=== PATIENT | female | born 1950 | race Caucasian/White ===

== ENCOUNTER 2020-10-24 17:44 | Outpatient (REF) | payer MEDICARE, SELFPAY | END 2020-10-24 17:45 | disposition home or self-care (01) | LOC: HO.LAB 17:44 | PROVIDERS: Visit Provider Internal Medicine | DX: Z20.828 Contact with and (suspected) exposure to other viral communicable diseases (principal) | CPT/HCPCS: C9803; U0003 ==

== ENCOUNTER 2023-08-07 08:54 | Outpatient (AMB) | payer MEDICARE, SELFPAY ==
--- NOTE | 2023-08-07 09:00 | MHC.OFFVIS ---
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 States her right is worse. Pain started about 2 years ago and has worsen over time. Pain increases when laying and sitting, better when she is mostly active. No injury she can recall. Denies swelling, numbness or tingling in her toes. States using lidocaine spray helps temporary Hx of LBP. States she has tried right ankle injection in February or March of 2023 however she did not have any relief. Allergies oxycodone Allergy (Intermediate, Verified 08/07/23 09:07) hives sulfacetamide [From Sulfacet-R] Allergy (Intermediate, Verified 08/07/23 09:07) hives sulfur [From Sulfacet-R] Allergy (Intermediate, Verified 08/07/23 09:07) hives codine Allergy (Mild, Uncoded 08/07/23 09:07) hives Medication List - Last Reconciled 08/07/23 by Staci Mathis MD cyclosporine 0.09% (Cequa) 1 drp ophthalmic (eye) Q12H omeprazole 20 mg PO DAILY topiramate 100 mg PO DAILY HPI HPI Comments History of Present Illness Details Patient was referred by Fito PYLE, [facility], who has been following patient for bilateral ankle pain. History of lumbar stenosis. Referred to physiatry to evaluate relationship between stenosis and ankle pain. Back issues since 1977, from running injury. Used to run on beach and side walks. Times that she had to use crutches. Had bad sciatica . Did skiing in [place]. Was told to have lumbar issues L4-5. Had fall during pandemic, after which she could not put weight on her right leg, given pain relievers and had PT. Was told to have issues from L1-2-3. Really didn't have back issues since. Nowadays, does not have back pain or leg pain. No numbness. The more she walks, the better the ankle pain is. Despite uneven surfaces, walking is fine. Denies claudication symptoms. No back pain with prolonged sitting or laying down. Feet/ankle is worse when she sits. Pain on anterior feet/ankle, could wake her up at night. Feels burning. Going for 2 years, worsening. No incitiing injuries. Has not noticed foot drop. Cross legs a lot. Does not wear high boots. No DM. Family history of neuropathy - mom, brother, etiology unknown? [facility] Medical History (Updated 08/07/23 @ 09:47 by Staci Mathis MD) Lumbar stenosis Ankle pain Social History (Updated 08/07/23 @ 09:07 by Noemy Wilkins [facility]) Current occupational status: retired Current occupation: left hand Review of Systems Const All systems reviewed & are unremarkable except as noted in HPI and below Physical Exam Vital Signs: BMI result Body Mass Index 22.0 Constitutional: Patient appears to be in no acute distress, well nourished and well developed. Patient was appropriately conversant and oriented. Good historian. MSK: No specific abnormalities found on inspection of the spine and all extremities. No pain with palpation over the lumbar area. Lumbar ROM was full. Bilateral hip, knee and ankle ROM WNL. No ligamentous laxity or crepitance. No increased effusion. Straight-leg raising test positive on right causing right foot pain. FABERE test negative. Gillet test is negative. Eloina test is negative. Piriformis test is negative. Scour test is negative. Strength is 5/5 in all muscle groups tested. No increased tone noted. Neurological: Neurologic examination of the upper and lower extremities was nonfocal with intact sensation, muscle stretch reflexes and without focal motor deficits . Mclain?s negative bilaterally. Babinski was down going bilaterally. Clonus was negative. Gait is non-antalgic without loss of balance. No footdrop. Results Reviewed Results Reviewed: We will obtain lumbar MRI results from [facility] I reviewed records from the following: Podiatry at [facility] Assessment & Plan Assessment & Plan (1) Ankle pain: Code(s): M25.579 - Pain in unspecified ankle and joints of unspecified foot Qualifiers: Chronicity: chronic Laterality: bilateral Qualified Code(s): M25.571 - Pain in right ankle and joints of right foot; M25.572 - Pain in left ankle and joints of left foot; G89.29 - Other chronic pain (2) Lumbar stenosis: Code(s): M48.061 - Spinal stenosis, lumbar region without neurogenic claudication Qualifiers: Neurogenic claudication status: without neurogenic claudication Qualified Code(s): M48.061 - Spinal stenosis, lumbar region without neurogenic claudication Plan Her main issue have been ankle pain. She was referred to us to evaluate the possibility that it is related to her history of lumbar stenosis. On history, she denies claudication symptoms. In fact, she says ankle pain improves with walking, which would be opposite from lumbar stenosis/claudication. Only possible finding that relates to lumbar on exam is a positive right SLR. Differential diagnosis could be peroneal neuropathy. She does cross her legs frequently. Her pain is more anterior rather than on heels. Fortunately there is no foot drop yet. Will schedule her for EMG to rule out peroneal neuropathy vs radiculopathy. Will obtain lumbar MRIs done at [facility]. Assessment and plan discussed with patient, and patient was agreeable. All questions were answered thoroughly. Staci Mathis MD, MAGALYS Board Certified, [place] Board of Physical Medicine and Rehabilitation (ABPMR) Board Certified, [place] Board of Electrodiagnostic Medicine (ABEM) Orders: Orders NE nerve conduction velocity Today M25.579 - Pain in unspecified ankle and joints of unspecified foot NE electromyogram (EMG) Today M25.579 - Pain in unspecified ankle and joints of unspecified foot Coding Level of Care Code New Pt Level 4 (33065) Diagnoses Chronic pain of both ankles M25.571; M25.572; G89.29 Chronicity: chronic Laterality: bilateral Spinal stenosis of lumbar region without neurogenic claudication M48.061 Neurogenic claudication status: without neurogenic claudication
[2023-08-07 09:06] VITALS: BMI 22.0
== END 2023-08-07 10:17 | disposition home or self-care (01) ==
PROVIDERS: Visit Provider Physical Medicine & Rehabilitation
DX: M25.571 Pain in right ankle and joints of right foot (principal); M25.572 Pain in left ankle and joints of left foot; G89.29 Other chronic pain; M48.061 Spinal stenosis, lumbar region without neurogenic claudication
CPT/HCPCS: 99204

== ENCOUNTER → 2023-08-07 08:54 | Outpatient (BNVA) | payer MEDICARE, SELFPAY | PROVIDERS: Visit Provider Physical Medicine & Rehabilitation ==

== ENCOUNTER 2023-10-23 13:29 | Outpatient (REF) | payer MEDICARE, SELFPAY ==
--- NOTE | 2023-10-23 13:35 | EMG_ITS ---
Chief complaint: Bilateral feet pain Reason for referral: Evaluate for peroneal neuropathy Procedure done: Bilateral lower extremity NCS/EMG Precautions and/or limitations: None The limb temperature was monitored continuously and remained between 32-36 degrees C during the performance of the NCS. Nerve Conduction Studies Anti Sensory Summary Table ?Stim Site NR Onset (ms) Norm Onset (ms) Peak (ms) Norm Peak (ms) O-P Amp (?V) Norm O-P Amp Site1 Site2 Delta-0 (ms) Dist (cm) Daniel (m/s) Norm Daniel (m/s) Left Sural Anti Sensory (Lat Mall) Calf ? 1.6 4.0 <4.0 12.5 >5.0 Calf Lat Mall 1.6 14.0 88 Right Sural Anti Sensory (Lat Mall) Calf ? 3.6 4.0 <4.0 6.6 >5.0 Calf Lat Mall 3.6 14.0 39 Motor Summary Table ?Stim Site NR Onset (ms) Norm Onset (ms) O-P Amp (mV) Norm O-P Amp iAmp (mV) Amp (1st) (%) Site1 Site2 Delta-0 (ms) Dist (cm) Daniel (m/s) Norm Daniel (m/s) Left Peroneal Motor (Ext Dig Brev) Ankle ? 5.5 <4.0 3.5 >2.5 5.0 100.0 Ankle Ext Dig Brev 5.5 0.0 B Fib ? 13.7 2.9 4.0 82.9 B Fib Ankle 8.2 35.0 43 >40 Poplt ? 14.5 2.9 4.0 82.9 Poplt B Fib 0.8 5.0 62 >40 Right Peroneal Motor (Ext Dig Brev) Ankle ? 5.2 <4.0 4.3 >2.5 5.8 100.0 Ankle Ext Dig Brev 5.2 0.0 B Fib ? 12.3 3.3 4.0 76.7 B Fib Ankle 7.1 32.0 45 >40 Poplt ? 13.6 3.6 4.4 83.7 Poplt B Fib 1.3 5.0 38 >40 Left Tibial Motor (Abd Umaña Brev) Ankle ? 4.6 <5 12.1 >2.5 16.9 100.0 Ankle Abd Umaña Brev 4.6 0.0 Knee ? 12.8 7.3 10.5 60.3 Knee Ankle 8.2 39.0 48 >40 Right Tibial Motor (Abd Umaña Brev) Ankle ? 4.6 <5 7.6 >2.5 10.6 100.0 Ankle Abd Umaña Brev 4.6 0.0 Knee ? 13.0 5.5 8.1 72.4 Knee Ankle 8.4 42.0 50 >40 EMG ?Side Muscle Nerve Root Ins Act Fibs Psw Amp Dur Poly Recrt Int Pat Comment Right AbdHallucis MedPlantar S1-2 Nml Nml Nml Nml Nml 0 Nml Complete Right AntTibialis Dp Br Peron L4-5 Nml Nml Nml Nml Nml 0 Nml Complete Right MedGastroc Tibial S1-2 Nml Nml Nml Nml Nml 0 Nml Complete Right VastusMed Femoral L2-4 Nml Nml Nml Nml Nml 0 Nml Complete Left AbdHallucis MedPlantar S1-2 Nml Nml Nml Nml Nml 0 Nml Complete Left AntTibialis Dp Br Peron L4-5 Nml Nml Nml Nml Nml 0 Nml Complete Left MedGastroc Tibial S1-2 Nml Nml Nml Nml Nml 0 Nml Complete Left VastusMed Femoral L2-4 Nml Nml Nml Nml Nml 0 Nml Complete Left Peroneus Long Sup Br Peron L5-S1 Nml Nml Nml Nml Nml 0 Nml Complete Right Peroneus Long Sup Br Peron L5-S1 Nml Nml Nml Nml Nml 0 Nml Complete FINDINGS: Right peroneal nerve showed prolonged distal latency, normal amplitude and slow conduction velocity across the fibular neck. Left peroneal nerve showed prolonged distal latency, normal amplitude and normal conduction velocity. All other nerves tested were within normal. Concentric needle EMG was performed in selected muscles of the bilateral lower extremity. Study did not reveal signs of electric abnormalities as shown in the table below. IMPRESSION: 1. This is an abnormal study. 2. 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 More localizable on the right, across fibular neck. 3. There is no electrodiagnostic evidence for tibial neuropathy. lumbosacral plexopathy, lumbar radiculopathy, or peripheral neuropathy. CLINICAL COMMENT: Avoid crossing legs. If continues in 6 months, patient to call our office and we may repeat EMG. Thank you for your kind referral. Staci Mathis MD, MAGALYS Board Certified, [place] Board [employer] Physical Medicine and Rehabilitation (ABPMR) Board Certified, [place] Board [employer] Electrodiagnostic Medicine (ABEM) CODIN [id number] x 2 MTDD
== END 2023-10-23 13:30 | disposition home or self-care (01) ==
LOC: HO.NEURO 13:29
PROVIDERS: PCP Family Medicine; Visit Provider Physical Medicine & Rehabilitation
DX: G57.33 Lesion of lateral popliteal nerve, bilateral lower limbs (principal); M25.571 Pain in right ankle and joints of right foot; M25.572 Pain in left ankle and joints of left foot
CPT/HCPCS: 95886; 95909

== ENCOUNTER → 2023-10-23 13:35 | Outpatient (BNV) | payer MEDICARE, BC, SELFPAY | PROVIDERS: PCP Family Medicine; Visit Provider Physical Medicine & Rehabilitation | DX: S84.11XA Injury of peroneal nerve at lower leg level, right leg, initial encounter (principal); S84.12XA Injury of peroneal nerve at lower leg level, left leg, initial encounter | CPT/HCPCS: 95886; 95909 ==

== ENCOUNTER 2024-07-08 10:04 | Outpatient (AMB) | payer MEDICARE, BC, SELFPAY ==
--- NOTE | 2024-07-08 10:07 | A.OFFVIS_ITS ---
Vital Signs 07/08/24 10:08 Height 5 ft 5 in Weight 137 lb BMI 22.8 Intake Visit Reasons: Newprob-Right leg pain Intake Note: Dodie is a 73 year old female who presents today for a new problem visit with complaints of right leg pain. Patient reports since her EMG on 10/23/23 her symptoms have not improved. She is doing PT but states this is not helping the bridge of her foot. When she is driving and accelerates the gas pedal she says it sends a shooting pain up her leg. She has a L5 cortisone injection is schedule or end of this month and says she does not think it will help the pain in her foots. Her main concern is the burning sensation on the bridge of her foot. Denies numbness, tingling, swelling, and recent injuries. Patient is taking medication for heart but unaware. Allergies oxycodone Allergy (Intermediate, Verified 07/08/24 10:08) hives sulfacetamide [From Sulfacet-R] Allergy (Intermediate, Verified 07/08/24 10:08) hives sulfur [From Sulfacet-R] Allergy (Intermediate, Verified 07/08/24 10:08) hives codine Allergy (Mild, Uncoded 07/08/24 10:08) hives Medication List - Last Reconciled 07/08/24 by Staci Mathis MD apixaban (Eliquis) 5 mg PO BID azelastine 2 sprays intranasal BID cyclosporine 0.09% (Cequa) 1 drp ophthalmic (eye) Q12H metoprolol succinate ER 100 mg PO DAILY omeprazole 20 mg PO DAILY rizatriptan take 1 tab at onset of headache; if no relief may repeat 1 tab after at least 2 hrs; max = 3 tabs/24 hr PO topiramate XR 100 mg PO DAILY triamcinolone acetonide (Nasacort Allergy) 2 sprays intranasal DAILY HPI Comments Details: Patient was referred by Fito PYLE, [facility], who has been following patient for bilateral ankle pain. History of lumbar stenosis. Referred to physiatry to evaluate relationship between stenosis and ankle pain. Back issues since 1977, from running injury. Used to run on beach and side walks. Times that she had to use crutches. Had bad sciatica . Did skiing in [place]. Was told to have lumbar issues L4-5. Had fall during pandemic, after which she could not put weight on her right leg, given pain relievers and had PT. Was told to have issues from L1-2-3. Really didn't have back issues since. Nowadays, does not have back pain or leg pain. No numbness. The more she walks, the better the ankle pain is. Despite uneven surfaces, walking is fine. Denies claudication symptoms. No back pain with prolonged sitting or laying down. Feet/ankle is worse when she sits. Pain on anterior feet/ankle, could wake her up at night. Feels burning. Going for 2 years, worsening. No incitiing injuries. Has not noticed foot drop. Cross legs a lot. Does not wear high boots. No DM. Family history of neuropathy - mom, brother, etiology unknown? EMG done 10/23/23 showed bilateral peroneal neuropathy at the fibular neck. Past MRI 06/24/23 did not report any spinal stenosis. She's been going to [facility] PT since February, had narrowed it down to right leg/ sciatica . Now scheduled to do right L5 SNRB 07/[address] Banks. Possibly do in the future to do peroneal injection. They did repeat lumbar MRI, done at [facility]. She continues to have constant right ankle pain. No left side pain. Having right lateral back down to right knee area and kruger pain. Recent afib diagnosis, on Eliquis. Non diabetic. 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 Patient was appropriately conversant and oriented. Good historian. MSK: No specific abnormalities found on inspection of the spine and all extremities. No pain with palpation over the lumbar area. Lumbar ROM was full. Strength is 5/5 in all muscle groups tested. No increased tone noted. Neurological: Neurologic examination of the upper and lower extremities was nonfocal with intact sensation, muscle stretch reflexes and without focal motor deficits . Mclain?s negative bilaterally. Babinski was down going bilaterally. Clonus was negative. Gait is non-antalgic without loss of balance. No footdrop. Results Reviewed Results Reviewed: EMG 10/23/23 IMPRESSION: 1. This is an abnormal study. 2. 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 More localizable on the right, across fibular neck. 3. There is no electrodiagnostic evidence for tibial neuropathy. lumbosacral plexopathy, lumbar radiculopathy, or peripheral neuropathy. Assessment & Plan Assessment & Plan (1) Peroneal neuropathy: Code(s): G57.30 - Lesion of lateral popliteal nerve, unspecified lower limb Category: Medical Qualifiers: Laterality: right Qualified Code(s): G57.31 - Lesion of lateral popliteal nerve, right lower limb (2) Lumbar radiculitis: Code(s): M54.16 - Radiculopathy, lumbar region Category: Medical Plan She will continue with PSSP for the right L5 injection. She was curious if we can repeat EMG to see how the peroneal nerve is doing and to rule out L5 radiculopathy again. We will schedule. Assessment and plan discussed with patient, and patient was agreeable. All questions were answered thoroughly. Staci Mathis MD, MAGALYS Board Certified, [place] Board of Physical Medicine and Rehabilitation (ABPMR) Board Certified, [place] Board of Electrodiagnostic Medicine (ABEM) Orders: Orders NE nerve conduction velocity Today G57.30 - Lesion of lateral popliteal nerve, unspecified lower limb NE electromyogram (EMG) Today G57.30 - Lesion of lateral popliteal nerve, unspecified lower limb Coding Level of Care Code Est Pt Level 3 (70124) Diagnoses Neuropathy of right peroneal nerve G57.31 Laterality: right Lumbar radiculitis M54.16
[2024-07-08 10:08] VITALS: BMI 22.8
== END 2024-07-08 10:41 | disposition home or self-care (01) ==
PROVIDERS: PCP Family Medicine; Visit Provider Physical Medicine & Rehabilitation
DX: G57.31 Lesion of lateral popliteal nerve, right lower limb (principal)
CPT/HCPCS: 99213

== ENCOUNTER → 2024-07-08 10:04 | Outpatient (BNVA) | payer MEDICARE, SELFPAY | PROVIDERS: PCP Family Medicine; Visit Provider Physical Medicine & Rehabilitation | DX: G57.31 Lesion of lateral popliteal nerve, right lower limb (principal) | CPT/HCPCS: 99212 ==

== ENCOUNTER 2024-08-18 13:05 | Outpatient (REF) | payer MEDICARE, BC, SELFPAY ==
--- NOTE | 2024-08-18 13:09 | EMG_ITS ---
ADDENDUM: Correction has been made to this report under Impression. Chief complaint: At least 3 years of right ankle pain. Shooting pain on right leg when she steps down on the gas while driving. Denies lower back pain per se. She denies symptoms on left leg. EMG done by me 10/23/2023 showed signs of bilateral peroneal neuropathy at the fibular neck. Reason for referral: Repeat NCS/EMG, rule out L5 radiculopathy, confirm peroneal neuropathy Procedure done: Bilateral lower extremity NCS/EMG Precautions and/or limitations: Eliquis The limb temperature was monitored continuously and remained between 32-36 degrees C during the performance of the NCS. Nerve Conduction Studies Anti Sensory Summary Table ?Stim Site NR Onset (ms) Norm Onset (ms) Peak (ms) Norm Peak (ms) O-P Amp (?V) Norm O-P Amp Site1 Site2 Delta-0 (ms) Dist (cm) Daniel (m/s) Norm Daniel (m/s) Left Sup Peron Anti Sensory (Ankle) Lateral Leg NR <4.4 >5.0 Lateral Leg Ankle 14.0 Right Sup Peron Anti Sensory (Ankle) Lateral Leg NR <4.4 >5.0 Lateral Leg Ankle 14.0 Left Sural Anti Sensory (Lat Mall) Calf ? 2.7 3.9 <4.0 20.2 >5.0 Calf Lat Mall 2.7 14.0 52 Right Sural Anti Sensory (Lat Mall) Calf ? 3.1 3.8 <4.0 8.8 >5.0 Calf Lat Mall 3.1 14.0 45 Motor Summary Table ?Stim Site NR Onset (ms) Norm Onset (ms) O-P Amp (mV) Norm O-P Amp iAmp (mV) Amp (1st) (%) Site1 Site2 Delta-0 (ms) Dist (cm) Daniel (m/s) Norm Daniel (m/s) Left Peroneal Motor (Ext Dig Brev) Ankle ? 4.9 <4.0 3.0 >2.5 3.6 100.0 Ankle Ext Dig Brev 4.9 0.0 B Fib ? 11.6 2.8 3.4 93.3 B Fib Ankle 6.7 32.0 48 >40 Poplt ? 13.1 2.8 3.3 93.3 Poplt B Fib 1.5 5.0 33 >40 Right Peroneal Motor (Ext Dig Brev) Ankle ? 4.8 <4.0 5.4 >2.5 6.9 100.0 Ankle Ext Dig Brev 4.8 0.0 B Fib ? 12.1 4.5 5.4 83.3 B Fib Ankle 7.3 31.5 43 >40 Poplt ? 13.1 4.5 5.3 83.3 Poplt B Fib 1.0 6.0 60 >40 Left Peroneal TA Motor (Tib Ant) Fib Head ? 3.7 <4.2 1.5 1.8 100.0 Fib Head Tib Ant 3.7 0.0 Poplit ? 4.5 <5.7 2.9 3.5 193.3 Poplit Fib Head 0.8 5.0 63 >40.5 Left Tibial Motor (Abd Umaña Brev) Ankle ? 4.2 <5 6.0 >2.5 8.0 100.0 Ankle Abd Umaña Brev 4.2 0.0 Knee ? 12.9 3.6 5.8 60.0 Knee Ankle 8.7 41.0 47 >40 Right Tibial Motor (Abd Umaña Brev) Ankle ? 5.0 <5 5.8 >2.5 6.9 100.0 Ankle Abd Umaña Brev 5.0 0.0 Knee ? 13.8 4.3 7.0 74.1 Knee Ankle 8.8 42.0 48 >40 EMG ?Side Muscle Nerve Root Ins Act Fibs Psw Amp Dur Poly Recrt Int Pat Comment Right AbdHallucis MedPlantar S1-2 Nml Nml Nml Nml Nml 0 Nml Complete Right AntTibialis Dp Br Peron L4-5 Incr 1+ 1+ Nml Nml 0 Nml Complete Right PostTibialis Tibial L5, S1 Nml Nml Nml Nml Nml 0 Nml Complete Right MedGastroc Tibial S1-2 Nml Nml Nml Nml Nml 0 Nml Complete Right VastusMed Femoral L2-4 Nml Nml Nml Nml Nml 0 Nml Complete Right BicepsFemS Sciatic L5-S1 Nml Nml Nml Nml Nml 0 Nml Complete Right GluteusMed SupGluteal L4-S1 Nml Nml Nml Nml Nml 0 Nml Complete FINDINGS: Right peroneal nerve showed prolonged distal latency, normal amplitude and normal conduction velocity. Left peroneal nerve, recording at EDB muscle, showed prolonged distal latency, normal amplitude and slow conduction velocity across fibular neck. When recording at TA muscle, amplitude below fibular neck is low. Bilateral superficial peroneal sensory nerves were absent. All other nerves tested were within normal. Concentric needle EMG was performed in selected muscles of the right lower extremity. Study revealed signs of electric abnormalities as shown in the table above. Right TA muscle showed increased insertional activity, PSWs and fibrillations. IMPRESSION: 1. This is an abnormal study. 2. There is electrodiagnostic evidence for bilateral COMMON peroneal neuropathy. 3. There is no electrodiagnostic evidence for tibial neuropathy. lumbosacral plexopathy, lumbar radiculopathy, or peripheral neuropathy. CLINICAL COMMENT: Findings similar to last EMG/NCS. Thank you for your kind referral. Staci Mathis MD, MAGALYS Board Certified, [place] Board [employer] Physical [employer] and Rehabilitation (ABPMR) Board Certified, [place] Board [employer] Electrodiagnostic Medicine (ABEM) CODIN [id number] [facility]
== END 2024-08-18 13:06 | disposition home or self-care (01) ==
LOC: HO.NEURO 13:05
PROVIDERS: PCP Family Medicine; Visit Provider Physical Medicine & Rehabilitation
DX: G57.31 Lesion of lateral popliteal nerve, right lower limb (principal)
CPT/HCPCS: 95886; 95910

== ENCOUNTER → 2024-08-18 13:09 | Outpatient (BNV) | payer MEDICARE, BC, SELFPAY | PROVIDERS: PCP Family Medicine; Visit Provider Physical Medicine & Rehabilitation | DX: G57.33 Lesion of lateral popliteal nerve, bilateral lower limbs (principal) | CPT/HCPCS: 95886; 95911 ==

== ENCOUNTER 2024-09-24 09:57 | Outpatient (AMB) | payer MEDICARE, BC, SELFPAY ==
--- NOTE | 2024-09-24 10:02 | A.OFFVIS_ITS ---
Vital Signs 3 09/24/24 10:04 Height 5 ft 5 in Weight 134 lb BMI 22.3 BP 128/58 L Blood Pressure Location Lt brachial Position Sitting Respiration 16 Pulse 70 Pulse Source Pulse Oximeter Pulse Oximetry (%) 97 Oxygen Delivery Method Room Air Intake Visit Reasons: Lesion of Lateral Popliteal Nerve Right Lower Limb Allergies oxycodone Allergy (Intermediate, Verified 09/24/24 10:05) hives sulfacetamide [From Sulfacet-R] Allergy (Intermediate, Verified 09/24/24 10:05) hives sulfur [From Sulfacet-R] Allergy (Intermediate, Verified 09/24/24 10:05) hives codine Allergy (Mild, Uncoded 09/24/24 10:05) hives Medication List - Last Reconciled 09/24/24 by Clementina Kim LPN apixaban (Eliquis) 5 mg PO BID azelastine 2 sprays intranasal BID cyclosporine 0.09% (Cequa) 1 drp ophthalmic (eye) Q12H metoprolol succinate ER 100 mg PO DAILY omeprazole 20 mg PO DAILY rizatriptan take 1 tab at onset of headache; if no relief may repeat 1 tab after at least 2 hrs; max = 3 tabs/24 hr PO topiramate XR 100 mg PO DAILY triamcinolone acetonide (Nasacort Allergy) 2 sprays intranasal DAILY HPI HPI Lesion of Lateral Popliteal Nerve Right Lower Limb: Details: 74-year-old female who presents to the office today for evaluation of right leg pain, most pronounced in the bridge of the right foot. She has back issues since 1977, from running injury. She used to run on beach and side walks. Times that she had to use crutches. Had bad sciatica . Did skiing in [place]. Was told to have lumbar issues L4-5. Had fall during pandemic, after which she could not put weight on her right leg, given pain relievers and had PT. Was told to have issues from L1-2-3. Really did not have back issues since. While in the office today, she states she has pinched peroneal nerve on both her legs. She reports pain in her right leg. She states the pain is between 5-7/10 10 in intensity on average. The pain initiyally started with the right foot over 2 years ago and had seen 4 podiatrists. She states there were times it was painful to walk. The pain is now constant. She endorses the right foot pain is most bothersome at night and it wakes her up from sleep. She endorses pain in the bridge of the right foot. The pain aggravate with prolonged walking. When she experiences worse pain, the pain is radiating to both her legs. She also experiences episodes of sciatica, where she has pain going all the way from her back down her right leg. She has tried gabapentin in the past with benefit. Patient states that she had an MRI done at [facility]. She hasn't received back injections in the recent past as she was diagnosed with atrial fibrillation and had off Eliquis for a while. HPI Comments Details: 74-year-old female who presents to the office today for evaluation of lesion of lateral popilteal nerve, right lower limb. She has back issues since 1977, from running injury. She used to run on beach and side walks. Times that she had to use crutches. Had bad sciatica . Did skiing in [place]. Was told to have lumbar issues L4-5. Had fall during pandemic, after which she could not put weight on her right leg, given pain relievers and had PT. Was told to have issues from L1-2-3. Really did not have back issues since. While in the office today, she states she has pinched peroneal nerve on both her legs. She reports pain in her legs and foot. It started with the right foot over 2 years ago and had to go to four podiatrists. She states there were times it was painful to walk. The pain is constant. With pain, she has difficulty sleeping. She endorses pain in the bridge of the foot. The pain aggravate with prolonged walking. When she experiences worse pain, the pain is radiating to both her legs. She has tried gabapentin in the past with benefit. Patient states that she had an MRI done at [facility]. She never received back injections in the past as she was diagnosed with atrial fibrillation and had off Eliquis for a while. [facility] Medical History (Updated 07/08/24 @ 10:39 by Staci Mathis MD) Peroneal neuropathy Lumbar stenosis Ankle pain Social History (Updated 08/07/23 @ 09:07 by Noemy Wilkins [facility]) Current occupational status: retired Current occupation: left hand Review of Systems Const All systems reviewed & are unremarkable except as noted in HPI and below Physical Exam Vital Signs: Last Vital Signs Pulse 70 09/24/24 10:04 Resp 16 09/24/24 10:04 BP 128/58 L 09/24/24 10:04 Pulse Ox 97 09/24/24 10:04 Oxygen Delivery Method Room Air 09/24/24 10:04 BMI result Body Mass Index 22.3 General: Appears afebrile. Alert and oriented. Mood and affect appropriate. Follows and participates in conversation appropriately. Respiratory effort is unlabored. Able to transition from sit to stand unassisted. Ambulates with bilaterally normal heel strike and toe off. Right Leg: There is tenderness to palpation overlying the palpation of the posterolateral aspect on the right knee, but similar tenderness is not present on the left side. Results Reviewed Results Reviewed: EMG/NCS FINDINGS: Right peroneal nerve showed prolonged distal latency, normal amplitude and normal conduction velocity. Left peroneal nerve, recording at EDB muscle, showed prolonged distal latency, normal amplitude and slow conduction velocity across fibular neck. When recording at TA muscle, amplitude below fibular neck is low. Bilateral superficial peroneal sensory nerves were absent. All other nerves tested were within normal. Concentric needle EMG was performed in selected muscles of the right lower extremity. Study revealed signs of electric abnormalities as shown in the table above. Right TA muscle showed increased insertional activity, PSWs and fibrillations. IMPRESSION: 1. This is an abnormal study. 2. There is electrodiagnostic evidence for bilateral COMMON peroneal neuropathy. 3. There is no electrodiagnostic evidence for tibial neuropathy. lumbosacral plexopathy, lumbar radiculopathy, or peripheral neuropathy. Assessment & Plan Assessment & Plan (1) Lumbar radiculitis: Code(s): M54.16 - Radiculopathy, lumbar region Category: Medical (2) Peroneal neuropathy: Code(s): G57.30 - Lesion of lateral popliteal nerve, unspecified lower limb Category: Medical Qualifiers: Laterality: right Qualified Code(s): G57.31 - Lesion of lateral popliteal nerve, right lower limb (3) Ankle pain: Code(s): M25.579 - Pain in unspecified ankle and joints of unspecified foot Category: Medical Qualifiers: Chronicity: chronic Laterality: bilateral Qualified Code(s): M25.571 - Pain in right ankle and joints of right foot; M25.572 - Pain in left ankle and joints of left foot; G89.29 - Other chronic pain Plan Discussed hydrodissection and temporary nerve stimulation as well as permanent nerve stimulation as possible treatments for her RLE pain. Her right LE pain is likely a combination of lumbar radiculitis, peripheral nerve entrapment, and potentially mechanical foot arch instability. It is difficult to say how much each of these components is contributing to her symptoms. As the gabapentin was effective in the past, we will try her on gabapentin 300 mg daily for 1 month to see how she does. She will titrate the dose up to 600 if this dose is not effective. If this is not helpful, we will proceed with a trial of hydrodissection as a next step, eventually proceeding to PNS as needed. She will follow-up in [address] Isbell by Dina Calderon medical care manager, on 09/24/2024. I, Dr. Isbell, have personally reviewed and agree with the information entered by the scribe. Medications: New 2 gabapentin 300 mg PO BEDTIME 60 caps 0RF Coding Level of Care Code New Pt Level 4 (96166) Diagnoses Lumbar radiculitis M54.16 Neuropathy of right peroneal nerve G57.31 Laterality: right Chronic pain of both ankles M25.571; M25.572; G89.29 Chronicity: chronic Laterality: bilateral
[2024-09-24 10:04] VITALS: BP 128/58; PULSE 70; RESP 16; O2SAT 97; BMI 22.3
== END 2024-09-24 10:29 | disposition home or self-care (01) ==
PROVIDERS: PCP Family Medicine; Referring Provider Physical Medicine & Rehabilitation; Visit Provider Internal Medicine
DX: G57.31 Lesion of lateral popliteal nerve, right lower limb (principal); M25.571 Pain in right ankle and joints of right foot; M25.572 Pain in left ankle and joints of left foot; G89.29 Other chronic pain
CPT/HCPCS: 99204

== ENCOUNTER → 2024-09-24 09:57 | Outpatient (BNVA) | payer MEDICARE, BC, SELFPAY | PROVIDERS: PCP Family Medicine; Referring Provider Physical Medicine & Rehabilitation; Visit Provider Internal Medicine | DX: G57.31 Lesion of lateral popliteal nerve, right lower limb (principal); M25.571 Pain in right ankle and joints of right foot; M25.572 Pain in left ankle and joints of left foot; G89.29 Other chronic pain | CPT/HCPCS: 99202 ==

== ENCOUNTER 2024-12-15 10:50 | Outpatient (AMB) | payer MEDICARE, BC, SELFPAY ==
[2024-12-15 10:55] VITALS: BP 126/57; PULSE 71; RESP 16; O2SAT 99
--- NOTE | 2024-12-15 10:55 | A.OFFVIS_ITS ---
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 Required: No Orthodontic Band Maker: Orthodontic Band Maker Present Accompanied by: Andrzej Lo Allergies oxycodone Allergy (Intermediate, Verified 12/15/24 10:57) hives sulfacetamide [From Sulfacet-R] Allergy (Intermediate, Verified 12/15/24 10:57) hives sulfur [From Sulfacet-R] Allergy (Intermediate, Verified 12/15/24 10:57) hives codine Allergy (Mild, Uncoded 12/15/24 10:57) hives Medication List - Last Reconciled 12/15/24 by Clementina Kim LPN apixaban (Eliquis) 5 mg PO BID azelastine 2 sprays intranasal BID cyclosporine 0.09% (Cequa) 1 drp ophthalmic (eye) Q12H gabapentin 600 mg (2 x 300 mg) PO BEDTIME metoprolol succinate ER 100 mg PO DAILY omeprazole 20 mg PO DAILY rizatriptan take 1 tab at onset of headache; if no relief may repeat 1 tab after at least 2 hrs; max = 3 tabs/24 hr PO topiramate XR 100 mg PO DAILY triamcinolone acetonide (Nasacort Allergy) 2 sprays intranasal DAILY HPI HPI Discuss Hydrodissection of Knee Procedure: Details: History of Present Illness The patient is a 74-year-old female presenting with leg pain. She is undergoing treatment with an L5-S1 interlaminar epidural sugar injection, specifically concerned about its efficacy in relieving her leg pain. This intervention is part of her ongoing management for L5-S1 intervertebral disc disorder, which is the underlying cause of her leg discomfort. Her treatment journey includes evaluating the potential benefits of the current procedure and considering future interventions only if necessary. Pain Description - Onset: Persistent for over three years - Quality: Constant, sometimes exacerbating; shooting pain - Location: Right fibular neck, radiating up the kruger - Timing: Increased pain during activities such as pressing the accelerator while driving - Exacerbating Factors: Driving, particularly using the accelerator - Relieving Factors: Gabapentin provides partial relief, adjusted to two tablets at night for better effect - Interference: Significant impact on driving; overall daily activities affected Physical Exam Appears afebrile. Alert and oriented. Mood and affect appropriate. Follows and participates in conversation appropriately. Respiratory effort is unlabored. Able to transition from sit to stand unassisted. Ambulates with bilaterally normal heel strike and toe off. Able to stand and walk on toes and heels. Pain Management - Affect: Not specified - Analgesia: Currently considering L5-S1 interlaminar epidural sugar injection for pain management - Adverse Effects: Not specified - Activities of Daily Living: Influence not discussed - Aberrant Drug Related Behaviors: Not specified [facility] Medical History (Updated 07/08/24 @ 10:39 by Staci Mathis MD) Peroneal neuropathy Lumbar stenosis Ankle pain Social History (Updated 08/07/23 @ 09:07 by Noemy Wlikins C[facility]) Current occupational status: retired Current occupation: left hand Physical Exam Vital Signs: Last Vital Signs Pulse 71 12/15/24 10:55 Resp 16 12/15/24 10:55 BP 126/57 L 12/15/24 10:55 Pulse Ox 99 12/15/24 10:55 Oxygen Delivery Method Room Air 12/15/24 10:55 Assessment & Plan Assessment & Plan (1) Peroneal neuropathy: Code(s): G57.30 - Lesion of lateral popliteal nerve, unspecified lower limb Category: Medical Qualifiers: Laterality: right Qualified Code(s): G57.31 - Lesion of lateral popliteal nerve, right lower limb Plan Plan The plan is to proceed with the L5-S1 interlaminar RIZWANA with Dr. Banks as a potential measure to alleviate the patient's leg pain associated with her L5-S1 intervertebral disc disorder. Evaluating the outcome of this intervention is essential before considering additional treatment options. The patient will transition from gabapentin to pregabalin, with careful monitoring of treatment efficacy to address ongoing neuropathic pain. A right peroneal nerve block, with added local anesthetic, is planned. The scheduling will ensure no driving post-procedure. Further evaluation and consideration of nerve stimulation will be based on post-procedure outcomes. Patient was informed and verbally consented to the use of an ambient scribe for clinic note documentation during this visit. Discussion Notes I discussed with the patient the management of her neuropathic pain, specifically the switch from gabapentin to pregabalin in hope of improved drug efficacy. We explored practical arrangements for a right peroneal nerve block, ensuring insurance coverage through the use of local anesthetic to classify it as a nerve block under Medicare. The importance of not driving post-procedure was emphasized. I educated the patient on the role of nerve stimulation as a potential follow-up if the nerve block yields beneficial results. A brochure was provided to aid understanding of nerve stimulation options. The patient expressed understanding and agreement with the plan and arrangements, anticipating scheduling when personal logistics accommodate these restrictions. Patient Instructions - Continue modified pain management with pregabalin, starting at 75 mg in the morning and 150 mg at night. - Schedule the nerve block procedure when personal arrangements allow for no immediate post-procedure driving. - Follow the provided brochure for further understanding of nerve stimulation options as future potential treatments. - Monitor response to pregabalin and communicate any changes in pain levels or side effects. - Plan follow-up visit as required to evaluate the effects of treatment adjustments and discuss any additional interventions if necessary. Medications: New pregabalin 75 mg orally. 1 tablet QAM; 2 tablets QPM 90 caps 0RF Discontinued gabapentin Discontinued Reason: No Longer Medically Relevant 600 mg (2 x 300 mg) PO BEDTIME 60 caps 3RF Coding Level of Care Code Est Pt Level 3 (44398) Diagnoses Neuropathy of right peroneal nerve G57.31 Laterality: right
--- OUTSIDE RECORDS SUMMARY | 2024-12-15 12:36 | XMS_ITS | Encounter Summary ---
Author Organization [facility] Address [address] [place] [address] Care Team Providers Care Community Affairs Manager Name Role Phone Mason Stearns DO Primary Care Provider Reason for Visit * Reason Onset Date Comments Procedure 11/17/2024 Afib Ablation Encounter Details Date Type Department Care Team ([facility] st Contact Info) Description 11/17/2024 Telephone [facility] [address] [facility] [address] [place] [id number] Ana Colon MD [address] [facility] [address] [place] [address] Procedure (Afib Ablation ) Social History Tobacco Use Types Packs/Day Years Used Date Smoking Tobacco: Never Smokeless Tobacco: Never Alcohol Use Standard Drinks/Week Comments Yes 0 (1 standard drink = 0.6 oz pur e alcohol) Comments Unknown Sex and Gender Information Value Date Recorded Sex Assigned at Not on file Legal Sex Female 4:00 PM EST Gender Identity Not on file Sexual Orientation Not on file documented as of this encounter Progress Notes * Aidee Velazquez - 11/17/2024 8:39 AM EST Spoke with patient and followed up with her about where she was at with her ablation. 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 No further plan of action for now documented in this encounter Plan of Treatment Not on file documented as of this encounter Visit Diagnoses Not on filedocumented in this encounter Care Teams Community Affairs Manager Relationship Specialty Start Date End Date Mason Stearns DO [address] [place], [place] PCP - General 01/14/11 documented as of this encounter
--- OUTSIDE RECORDS SUMMARY | 2024-12-15 12:36 | XMS_ITS | Continuity of Care Document ---
Author Organization [facility] Address [address] [facility], 3r d Floor, [address] [place] [id number]- Care Team Providers Care Physiognomist Name Role Phone Mason Stearns DO Primary Care Physician Encounter [facility] Date(s): 10/20/24 - 11/19/24 [facility] [address] [facility] 3rd Floor, [address] [place] [id number] Encounter Type: Triage Allergies, Adverse Reactions, Alerts Substance Criticality Severity Reaction Reaction Severity Status codeine rash Active sulfa drugs rash Active oxyCODONE itching Active Immunizations Given and Recorded Vaccine Date Status Refusal Reason tetanus/diphtheria/pertussis, acel(Tdap) 03/24/24 Recorded SARS-CoV-2 mRNA (zlurars-[id number]-pgypx) vax 07/29/23 Recorded influenza virus vaccine, inactivated 07/29/23 Jaziel rded influenza virus vaccine, inactivated 08/29/22 Jaziel rded influenza virus vaccine, inactivated 07/29/21 Jaziel rded influenza virus vaccine, inactivated 08/02/20 Jaziel rded influenza virus vaccine, inactivated 07/30/16 Jaziel rded influenza virus vaccine, inactivated 08/08/15 Jaziel rded influenza virus vaccine, inactivated 08/12/14 Jaziel rded influenza virus vaccine, inactivated 08/06/13 Jaziel rded [id number] bivalent booster vax 03/06/23 Recorded [id number] bivalent booster vax 08/29/22 Recorded SARS-CoV-2 (COVID-19) mRNA-1273 vaccine 02/02/21 R ecorded SARS-CoV-2 (COVID-19) mRNA-1273 vaccine 01/05/21 R ecorded zoster vaccine, inactivated 07/31/19 Recorded zoster vaccine, inactivated 04/23/19 Recorded Medications amiodarone 200 mg oral tablet 200 mg, 1, tablet, By Mouth, Daily, # 30 tablet, Refills 6, Tot. Refills 6, Maintenance, 07/27/24 9:30:00 AM EDT, Route to Pharmacy Electronically, [facility]/pharmacy #[id number], Partial fill upon patient request if the prescription is for a schedule II opioid drug., 165.1, cm, 07/15/24 11:16:00 EDT, Height, 62, kg, 07/15/24 11:05:00 EDT, Dry Weight Start Date: 07/27/24 Stop Date: 02/22/25 Status: Ordered Quantity: 30.0 Unit: tablet Repeat number: 7 areds 2 areds 2, Refills 0, Maintenance, 05/29/23 8:43:00 AM EDT, Supply Start Date: 05/29/23 Status: Ordered Repeat number: 1 azelastine nasal 0.15% spray 2 sprays, 2 times a day, 0 Refills, Maintenance, 04/23/23 12:11:00 PM EDT, Partial fill upon patientrequest if the prescription is for a schedule II opioid drug. Start Date: 04/23/23 Status: Ordered Repeat number: 1 Calcium And Vitamin D Combination By Mouth, 0 Refills, Maintenance, 08/05/13 2:38:37 PM EDT Start Date: 08/05/13 Status: Ordered Repeat number: 1 Cequa Eyes, Both, Every 12 hours, 0 Refills, Maintenance, 02/13/22 10:39:00 AM EDT, Partial fill upon patient request if the prescription is for a schedule II opioid drug. Start Date: 02/13/22 Status: Ordered Repeat number: 1 clobetasol 0.05% topical cream See Instructions, 1 application Topically 2 to 3 times a week, # 45 Gm, 2 Refills, Maintenance, 10/06/24 12:06:00 PM EST, Cream, [facility]/pharmacy #[id number], Partial fill upon patient request if the prescription is for a schedule II opioid drug., 1 application Topically 2 to 3 times a week, 165.1, cm, 12/04/24 10:10:00 EST, Height, 64.7, kg, 09/20/24 9:20:00 EST, Dry Weight Start Date: 10/06/24 Status: Ordered Quantity: 45.0 Unit: g Repeat number: 3 Eliquis 5 mg oral tablet 1 tablet = 5 mg, By Mouth, 2 times a day, # 180 tablet, 3 Refills, Maintenance, 05/31/24 12:38:00 PMEDT, Tablet, Partial fill upon patient request if the prescription is for a schedule II opioid drug. Start Date: 05/31/24 Status: Ordered Quantity: 180.0 Unit: tablet Repeat number: 4 estradiol 0.1 mg/g vaginal cream See Instructions, twice weekly., # 42.5 Gm, 4 Refills, Maintenance, 10/06/24 12:00:00 PM EST, [facility]/pharmacy #[id number], Partial fill upon patient request if the prescription is for a schedule II opioid drug., 165.1, cm, 10/06/24 10:10:00 EST, Height, 64.7, kg, 09/20/24 9:20:00 EST, Dry Weight Start Date: 10/06/24 Status: Ordered Quantity: 42.5 Unit: g Repeat number: 5 Fish Oil By Mouth, 0 Refills, Maintenance, 03/02/19 5:11:43 PM EDT Start Date: 03/02/19 Status: Ordered Repeat number: 1 Metoprolol Succinate ER 100 mg oral tablet, extended release 1, tablet, By Mouth, Daily, # 30 tablet, Refills 6, Tot. Refills 6, Maintenance, 07/27/24 9:28:00 AMEDT, Route to Pharmacy Electronically, [facility]/pharmacy #[id number], 165.1, cm, 07/15/24 11:16:00 EDT, Height, 62, kg, 07/15/24 11:05:00 EDT, Dry Weight Start Date: 07/27/24 Status: Ordered Quantity: 30.0 Unit: tablet Repeat number: 7 Multivitamin Daily, 0 Refills, Maintenance, 05/29/23 8:46:00 AM EDT, Partial fill upon patient request if the prescription is for a schedule II opioid drug. Start Date: 05/29/23 Status: Ordered Repeat number: 1 Myrbetriq 25 mg oral tablet, extended release 1 tablet = 25 mg, By Mouth, Daily, 0 Refills, Maintenance, 10/29/24 3:40:00 PM EST, Partial fill upon patient request if the prescription is for a schedule II opioid drug. Start Date: 10/29/24 Status: Ordered Repeat number: 1 Nasacort Allergy 24HR 55 mcg/inh nasal spray 1 sprays = 55 mcg, Daily, 0 Refills, Maintenance, 04/23/23 12:14:00 PM EDT, Partial fill upon patient request if the prescription is for a schedule II opioid drug. Start Date: 04/23/23 Status: Ordered Repeat number: 1 Nurtec ODT 75 mg oral tablet, disintegrating 1 tablet = 75 mg, By Mouth, Every 24 hours, PRN as needed for migraine headache, # 8 tablet, 0 Refills, Soft Stop, 04/09/24 12:26:00 AM EDT, DIS Tablet, [facility]/pharmacy #[id number], Partial fill upon patient request if the prescription is for a schedule II opioid drug., 165.1, cm, 04/02/24 16:17:00 EDT, Height, 62.4, kg, 03/15/24 13:33:00 EDT, Dry Weight Start Date: 04/09/24 Status: Ordered Quantity: 8.0 Unit: tablet Repeat number: 1 omeprazole 40 mg oral enteric coated capsule 1 capsule, By Mouth, Daily, # 90 capsule, 1 Refills, Maintenance, 05/02/24 1:27:00 PM EDT, [facility], 165.1, cm, 04/02/24 16:17:00 EDT, Height, 62.4, kg, 03/15/24 13:33:00 EDT,Dry Weight Start Date: 05/02/24 Status: Ordered Quantity: 90.0 Unit: capsule Repeat number: 2 oxybutynin 15 mg/24 hr oral tablet, extended release 1 tablet = 15 mg, By Mouth, Daily, # 30 tablet, 0 Refills, Maintenance, 10/29/24 3:41:00 PM EST, ERTablet, Partial fill upon patient request if the prescription is for a schedule II opioid drug. Start Date: 10/29/24 Status: Ordered Quantity: 30.0 Unit: tablet Repeat number: 1 rizatriptan 10 mg oral tablet 1 tablet, By Mouth, Daily, PRN NEEDED FOR MIGRAINE HEADACHE, MAY REPEAT DOSE IN 2 HOURS IF NEEDED . DO NOT EXCEED 2 DOSES IN 24 HOURS., # 9 tablet, 11 Refills, Maintenance, 05/11/24 6:33:00 AM EDT, [facility], 165.1, cm, 04/02/24 16:17:00 EDT, Height, 62.4, kg, 03/15/24 13:33:00 EDT, Dry Weight Start Date: 05/11/24 Status: Ordered Quantity: 9.0 Unit: tablet Repeat number: 1 solifenacin 10 mg oral tablet 1 tablet = 10 mg, By Mouth, Daily, # 30 tablet, 0 Refills, Maintenance, 10/29/24 3:42:00 PM EST, Tablet, Partial fill upon patient request if the prescription is for a schedule II opioid drug. Start Date: 10/29/24 Status: Ordered Quantity: 30.0 Unit: tablet Repeat number: 1 topiramate 50 mg oral capsule, extended release 1 capsule = 50 mg, By Mouth, Daily, contents of capsule may be mixed with soft foods such as applesauce, # 90 capsule, 2 Refills, Maintenance, 12/15/24 6:21:00 AM EST, ER Capsule, [facility], Partial fill upon patient request if the prescription is for a schedule II opioid drug., 165.1, cm, 10/07/24 15:48:00 EST, Height, 64.7, kg, 09/20/24 9:20:00 EST, Dry Weight Start Date: 12/15/24 Stop Date: 09/11/25 Status: Ordered Quantity: 90.0 Unit: capsule Repeat number: 3 topiramate 50 mg oral capsule, extended release 1 capsule = 50 mg, By Mouth, Daily, for 30 days, contents of capsule may be mixed with soft foods such as applesauce, # 30 capsule, 2 Refills, Hard Stop 12/15/24 6:21:00 AM EST, 09/16/24 6:21:00 AM EST, ER Capsule, [facility]/pharmacy #[id number], Partial fill upon patient request if the prescription is for a schedule II opioid drug., 165.1, cm, 08/27/24 8:37:00 EDT, Height, 62, kg, 07/15/24 11:05:00 EDT, Dry Weight Start Date: 09/16/24 Stop Date: 12/15/24 Status: Ordered Quantity: 30.0 Unit: capsule Repeat number: 3 Tylenol 325 mg oral tablet 650 mg, 2, tablet, By Mouth, Every 4 hours, PRN, # 60 tablet, Refills 1, Tot. Refills 1, Maintenance, for pain, 06/02/23 10:55:00 AM EDT, Route to Pharmacy Electronically, [facility]/pharmacy #[id number], Partial fill upon patient request if the prescription is for a schedule II opioid drug., 165, cm, 06/02/23 9:46:00 EDT, Height, 63.4, kg, 06/02/23 9:46:00 EDT, Dry Weight Start Date: 06/02/23 Status: Ordered Quantity: 60.0 Unit: tablet Repeat number: 2 Vitamin A = 50,000 International_Units, Intramuscular, Daily, 0 Refills, Maintenance, 02/13/22 10:38:00 AM EDT, Partial fill upon patient request if the prescription is for a schedule II opioid drug. Start Date: 02/13/22 Status: Ordered Repeat number: 1 Vitamin C By Mouth, Daily, 0 Refills, Maintenance, 02/13/22 10:39:00 AM EDT, Partial fill upon patient requestif the prescription is for a schedule II opioid drug. Start Date: 02/13/22 Status: Ordered Repeat number: 1 Vitamin E By Mouth, Daily, 0 Refills, Maintenance, 02/22/22 9:34:00 AM EDT, Partial fill upon patient request if the prescription is for a schedule II opioid drug. Start Date: 02/22/22 Status: Ordered Repeat number: 1 Vitamin K1 0 Refills, Maintenance, 12/02/23 3:00:00 PM EST, Partial fill upon patient request if the prescription is for a schedule II opioid drug. Start Date: 12/02/23 Status: Ordered Repeat number: 1 Problem List Condition Confirmation Course Effective Dates Status Health Status Informant Osteoarthritis of both feet Confirmed Active Cardiac arrhythmia Confirmed Active Cobalamin deficiency Confirmed Active Depression Confirmed Active Current use of estrogen therapy Confirmed Active Esophageal reflux (GERD) Confirmed Active Gastroesophageal reflux disease Confirmed Active History of anemia Confirmed Active Hypertriglyceridemia Confirmed Active Immunization due Confirmed Active Urinary frequency Confirmed Active Lichen sclerosus et atrophicus of the vulva Confirmed Active Menopausal symptoms Confirmed Active Mitral valve regurgitation Confirmed Active Osteoporosis Confirmed Active OAB (overactive bladder) Confirmed Active Encounter for annual wellness exam in Medicare patient Confirmed Active Screening cholesterol level Confirmed Active Periodic limb movement disorder Confirmed Active Sciatica of right side Confirmed Active Social History Social History Type Response Smoking Status Never smoker; Tobacc o user in household: No entered on: 06/26/17 Sex Sex Representation Female (finding) Patient Care team information Care Team Personnel Name: Mason Stearns DO Position: [facility] Physician - Primary Care Member Role: PCP Address: [address] [place] [address] [place] [address]- Telecom: Name: Ramirez Barry MD Position: [facility] PIPE LAYER MD Member Role: Lifetime PIPE LAYER Physician Address: [address] [place] [address] [place] [address]- [place] Telecom: Name: Wesley SWANN, Torrey Jacobson Position: [facility] PIPE LAYER Member Role: Lifetime PIPE LAYER Physician Address: [address] [place] [address] [facility] [employer] Dispatcher - [place], [place] [address] Telecom: Care Team Related Persons Name: CHARLETTE MELARA Name: SB MONZON Insurance Providers Guarantor name: BALDEV CLARK Health Plan Information #: 1 Payer: MEDICARE PART B OUTPT Member Number: NA Policy Number: NA Group Number: NA Health Plan Information #: 2 Payer: HMO BLUE IN NETWORK Member Number: NA Policy Number: NA Group Number: NA
--- OUTSIDE RECORDS SUMMARY | 2024-12-15 12:36 | XMS_ITS | Clinical Summary ---
Author Organization [facility] Address [address] [place] [address] Care Team Providers Care Foot Press Operator Name Role Phone Mason Stearns DO Primary Care Provider [phone] Allergies Active Allergy Reactions Criticality Noted Date Comments Codeine Rash 01/25/2011 Oxycodone Hcl 08/17/2024 Sulfa (Sulfonamide Antibiotics) Rash 01/02 Medications apixaban (Eliquis) 5 mg tablet Take 1 Tablet by mouth 2 times daily. 4 Active azelastine (ASTELIN) 137 mcg (0.1 %) nasal spray 2 Sprays by Each Nare route 2 times daily. Use in each nostril as directed Active cholecalciferol (VITAMIN D-3) 25 mcg (1,000 unit) capsule Take 1 Cap by mouth daily. Active cyanocobalamin (VIT B-12) 1,000 mcg tablet extended release ER tablet Take 1 Tablet by mouth daily. Active cycloSPORINE (Cequa) 0.09 % dropperette apply?to the eye. Active metoprolol succinate (TOPROL-XL) 25 mg 24 hr tablet Take 1 Tablet by mouth daily for 360 days. 4 05/19/20 25 Active metoprolol succinate (Kapspargo Sprinkle) 100 mg capsule,sprinkle, ER 24hr Take 1 Tablet by mouth daily. Active omega-3 acid ethyl esters (LOVAZA) 1 gram capsule Take 1 Capsule by mouth daily. Active omeprazole (PriLOSEC) [address] capsule Take 1 Capsule by mouth daily. Active rizatriptan (MAXALT) 10 mg tablet Take 1 Tablet by mouth as needed. May repeat in 2 hours if needed Active topiramate 50 mg capsule,extended release 24hr Take 1 Capsule by mouth daily. Active vitamin E acid succinate (vitamin E succinate) 268 mg (400 unit) tablet Take 1 Tablet by mouth daily. Active VITAMIN K2 ORAL Take 1 Tablet by mouth daily. Active magnesium oxide (MAG-OX) 400 mg (241.3 elemental magnesium) tablet Take 1 Tablet by mouth daily. Active POTASSIUM ORAL 99Mg Tablet Act tevin vit X-O-Xi-copy chaser-lut-ze a-bio-saf (Retaine VISION) 125 mg-100 unit-20 mg capsule Take?by mouth as needed. Active mv-min/iron/folic /calcium/vitK (WOMEN'S MULTIVITAMIN ORAL) Take 1 Tablet by mouth daily. Active Active Problems Problem Noted Date Diagnosed Date Atrial flutter 03/22/2024 Overview (08/17/2024): Last Assessment & Plan: Patient with now documented A-fib. CHADS2 score of 2. We discussed anticoagulation options with starting Eliquis 5 mg twice daily. Patient been warned about bleeding. Patient been told to contact us if there is any questions concerning its use. Patient's been told to discontinue these 48 hours prior to any blood producing procedure or any Botox injections. We discussed the risk of bruising and bleeding. We also discussed the need to be anticoagulated given paroxysmal atrial flutter Palpitations 01/08/2021 Overview (08/17/2024): Last Assessment & Plan: Patient denies any significant palpitations. She will continue to monitor symptoms and let us know if symtpoms worsen. Anemia 08/28/2020 Iron deficiency anemia 08/28/2020 Postcholecystectomy diarrhea 05/01/2011 Abdominal adhesions 01/25/2011 Cholelithiasis 01/25/2011 Chronic cholecystitis 01/25/2011 Mitral valve prolapse 01/25/2011 Overview (08/17/2024): Last Assessment & Plan: Patient with a history of mild valve prolapse. Scheduled for echocardiography in September. Encounters Date Type Department Care Team Description 11/17/2024 Telephone [facility] - [address] [place] [address] Ana Colon MD Procedure (Afib Ablation ) from Last 3 Months Social History Tobacco Use Types Packs/Day Years Used Date Smoking Tobacco: Never Smokeless Tobacco: Never Alcohol Use Standard Drinks/Week Comments Yes 0 (1 standard drink = 0.6 oz pur e alcohol) Comments Unknown Sex and Gender Information Value Date Recorded Sex Assigned at Not on file Legal Sex Female 4:00 PM EST Gender Identity Not on file Sexual Orientation Not on file Obstetrics History Last Filed Vital Signs Vital Sign Reading Time Taken Comments Blood Pressure 124/88 07/06/2024 3:48 PM EDT Sit ting R Arm Pulse 110 07/06/2024 3:48 PM EDT Temperature - - Respiratory Rate - - Oxygen Saturation - - Inhaled Oxygen Concentration - - Weight 65.3 kg (144 lb) 07/06/2024 3:48 PM EDT Height 165.1 cm (5' 5 ) 07/06/2024 3:48 PM EDT Body Mass Index 23.96 07/06/2024 3:48 PM EDT Plan of Treatment Health Maintenance Due Date Last Done Comments Breast Cancer Screening 1950 DTaP,Tdap,and Td Vaccines (1 - Tdap) 1958 Zoster Vaccines (1 of 2) 2001 RSV Immunization Patients 60+ Years Old (1 - Risk 60-74 years 1-dose series) 2011 Pneumococcal Vaccine: 50+ Years (2 of 2 - PCV) 03/19/2019 03/19/2018 Cholesterol Screening (Lipid Panel) 10/13/2022 Colorectal Cancer Screening: Colonoscopy 10/13/2022 Depression Screening 10/13/2022 Falls Risk Assessment 10/13/2022 Hepatitis C Screening 10/13/2022 Osteoporosis Screening (Bone Density Screening) 10/13/2022 Social Influencers of Health Screening 10/13/2022 COVID-19 Vaccine ( season) 2024 Influenza Vaccine (#1) 2024 3, 08/29/2022, 07/29/2021, Additional history exists HIB Vaccines Aged Out No longer eligi ble based on patient's age to complete this topic HPV Vaccines Aged Out No longer eligi ble based on patient's age to complete this topic Hepatitis A Vaccines Aged Out No long er eligible based on patient's age to complete this topic Hepatitis B Vaccines Aged Out No long er eligible based on patient's age to complete this topic IPV Vaccines Aged Out No longer eligi ble based on patient's age to complete this topic MMR Vaccines Aged Out No longer eligi ble based on patient's age to complete this topic Meningococcal ACWY Vaccine Aged Out N o longer eligible based on patient's age to complete this topic Meningococcal B Vacine Aged Out No lo nger eligible based on patient's age to complete this topic RSV Immunization Patients Under 20 months Aged Out No longer eligible based on patient's age to complete this topic Varicella Vaccines Aged Out No longer eligible based on patient's age to complete this topic Advance Directives Documents on File Type Date Recorded Patient Embossing Machine Operator Expl anation Health Care Decision (hx) 02/18/2011 AD HERRERA DIRECTIVE Health Care Decision (hx) 02/18/2011 AD HERRERA DIRECTIVE Health Care Decision (hx) 02/18/2011 AD HERRERA DIRECTIVE Health Care Decision (hx) 02/18/2011 AD HERRERA DIRECTIVE Health Care Decision (hx) 02/18/2011 AD HERRERA DIRECTIVE Health Care Decision (hx) 02/18/2011 AD HERRERA DIRECTIVE Health Care Decision (hx) 02/18/2011 AD HERRERA DIRECTIVE Care Teams Foot Press Operator Relationship Specialty Start Date End Date Mason Stearns DO [address] [place], [place] PCP - General 01/14/11
--- OUTSIDE RECORDS SUMMARY | 2024-12-15 12:36 | XMS_ITS | Continuity of Care Document ---
Author Organization [facility] Address [address] [facility], [address]r d Floor, [address] [place] [address]- Care Team Providers Care Dye Box Operator Name Role Phone Mason Stearns DO Primary Care Physician Encounter [facility] Date(s): 10/21/24 - 11/20/24 [facility] [address] [facility] 3rd Floor, [address] [place] [address] Encounter Type: Triage Allergies, Adverse Reactions, Alerts Substance Criticality Severity Reaction Reaction Severity Status codeine rash Active oxyCODONE itching Active sulfa drugs rash Active Immunizations Given and Recorded Vaccine Date Status Refusal Reason tetanus/diphtheria/pertussis, acel(Tdap) 03/24/24 Recorded SARS-CoV-2 mRNA (nagzark-[id number]-fpknb) vax 07/29/23 Recorded influenza virus vaccine, inactivated 07/29/23 Jazile rded influenza virus vaccine, inactivated 08/29/22 Jaziel rded influenza virus vaccine, inactivated 07/29/21 Jaziel rded influenza virus vaccine, inactivated 08/02/20 Jaziel rded influenza virus vaccine, inactivated 07/30/16 Jaziel rded influenza virus vaccine, inactivated 08/08/15 Jaziel rded influenza virus vaccine, inactivated 08/12/14 Jaziel rded influenza virus vaccine, inactivated 08/06/13 Jaziel rded [id number] bivalent booster vax 03/06/23 Recorded [id number] bivalent booster vax 08/29/22 Recorded SARS-CoV-2 (COVID-19) mRNA-1273 vaccine 02/02/21 R ecorded SARS-CoV-2 (COVID-19) mRNA-1273 vaccine 01/05/21 R ecorded zoster vaccine, inactivated 07/31/19 Recorded zoster vaccine, inactivated 04/23/19 Recorded Medications amiodarone 200 mg oral tablet 200 mg, 1, tablet, By Mouth, Daily, # 30 tablet, Refills 6, Tot. Refills 6, Maintenance, 07/27/24 9:30:00 AM EDT, Route to Pharmacy Electronically, [facility]/pharmacy #[id number], Partial fill upon patient request [...] Refills, Maintenance, 10/06/24 12:06:00 PM EST, Cream, [facility]/pharmacy #[id number], Partial fill upon patient request if the prescription is for a schedule II opioid drug., 1 application Topically 2 to 3 times a week, 165.1, cm, 10/06/24 10:10:00 EST, Height, 64.7, [...] 4 Refills, Maintenance, 10/06/24 12:00:00 PM EST, [facility]/pharmacy #[id number], Partial fill upon patient request [...] 07/27/24 9:28:00 AMEDT, Route to Pharmacy Electronically, [facility]/pharmacy #[id number], 165.1, cm, 07/15/24 11:16:00 EDT, [...] Stop, 04/09/24 12:26:00 AM EDT, DIS Tablet, [facility]/pharmacy #[id number], Partial fill upon patient request [...] 1 Refills, Maintenance, 05/02/24 1:27:00 PM EDT, [facility], 165.1, cm, 04/02/24 16:17:00 EDT, Height, [...] 11 Refills, Maintenance, 05/11/24 6:33:00 AM EDT, [facility], 165.1, cm, 04/02/24 16:17:00 [...] Maintenance, 12/15/24 6:21:00 AM EST, ER Capsule, [facility], Partial fill upon patient request if [...] EST, 09/16/24 6:21:00 AM EST, ER Capsule, [facility]/pharmacy #[id number], Partial fill upon patient request [...] 10:55:00 AM EDT, Route to Pharmacy Electronically, [facility]/pharmacy #[id number], Partial fill upon patient request if the [...] Team Personnel Name: Mason Stearns DO Position: [facility] Physician - Primary Care Member Role: PCP Address: [address] [place] [address] [place] [address]- Telecom: Name: Ramirez Barry MD Position: [facility] ENERGY BROKER MD Member Role: Lifetime ENERGY BROKER Physician Address: [address] [place] [address] [place] Telecom: Name: Wesley SWANN, Torrey Jacobson Position: [facility] ENERGY BROKER Member Role: Lifetime ENERGY BROKER Physician Address: [address] [place] [address] Women[facility] [employer] W[employer] - [place], [place] [id number] Telecom: Care Team Related Persons [...]
--- OUTSIDE RECORDS SUMMARY | 2024-12-15 12:36 | XMS_ITS | Continuity of Care Document ---
Author Organization [facility] Address [address] [facility], 4t [place] [address]- Care Team Providers Care Deckhand Crab Boat Name Role Phone Mason Stearns DO Primary Care Physician Encounter [facility] Date(s): 07/28/24 - 11/25/24 [facility] [address] [facility], [address] [place], [place] [address] Attending Physician: Rosalva Barbosa MD Admitting Physician: Rosalva Barbosa MD Referring Physician: Mason Stearns DO Encounter Type: Pre-OutPatient One Time Allergies, Adverse Reactions, Alerts Substance Criticality Severity Reaction Reaction Severity Status codeine rash Active sulfa drugs rash Active oxyCODONE itching Active Immunizations Given and Recorded Vaccine Date Status Refusal Reason tetanus/diphtheria/pertussis, acel(Tdap) 03/24/24 Recorded SARS-CoV-2 mRNA (mvbdbaw-mjqd-bmepw) vax 07/29/23 Recorded influenza virus vaccine, inactivated 07/29/23 Jaziel rded influenza virus vaccine, inactivated 08/29/22 Jaziel rded influenza virus vaccine, inactivated 07/29/21 Jaziel rded influenza virus vaccine, inactivated 08/02/20 Jaziel rded influenza virus vaccine, inactivated 07/30/16 Jaziel rded influenza virus vaccine, inactivated 08/08/15 Jaziel rded influenza virus vaccine, inactivated 08/12/14 Jaziel rded influenza virus vaccine, inactivated 08/06/13 Jaziel rded [id number] bivalent booster vax 03/06/23 Recorded [id number] bivalent booster vax 08/29/22 Recorded SARS-CoV-2 (COVID-19) mRNA-1273 vaccine 02/02/21 R ecorded SARS-CoV-2 (COVID-19) mRNA-1273 vaccine 01/05/21 R ecorded zoster vaccine, inactivated 07/31/19 Recorded zoster vaccine, inactivated 04/23/19 Recorded Medications amiodarone 200 mg oral tablet 200 mg, 1, tablet, By Mouth, Daily, # 30 tablet, Refills 6, Tot. Refills 6, Maintenance, 07/27/24 9:30:00 AM EDT, Route to Pharmacy Electronically, [facility]/pharmacy #[id number], Partial fill upon patient request if the [...] Refills, Maintenance, 10/06/24 12:06:00 PM EST, Cream, [facility]/pharmacy #[id number], Partial fill upon patient [...] 4 Refills, Maintenance, 10/06/24 12:00:00 PM EST, [facility]/pharmacy #[id number], Partial fill upon patient [...] 07/27/24 9:28:00 AMEDT, Route to Pharmacy Electronically, [facility]/pharmacy #[id number], 165.1, cm, 07/15/24 11:16:00 [...] Stop, 04/09/24 12:26:00 AM EDT, DIS Tablet, [facility]/pharmacy #[id number], Partial fill upon patient [...] 1 Refills, Maintenance, 05/02/24 1:27:00 PM EDT, [facility], 165.1, cm, 04/02/24 16:17:00 [...] 11 Refills, Maintenance, 05/11/24 6:33:00 AM EDT, [facility], 165.1, cm, 04/02/24 [...] Maintenance, 12/15/24 6:21:00 AM EST, ER Capsule, [facility], Partial fill upon patient [...] EST, 09/16/24 6:21:00 AM EST, ER Capsule, [facility]/pharmacy #[id number], Partial fill upon patient [...] 10:55:00 AM EDT, Route to Pharmacy Electronically, [facility]/pharmacy #[id number], Partial fill upon patient [...] Team Personnel Name: Mason Stearns DO Position: [facility] Physician - Primary Care Member Role: PCP Address: [address] [place] [address] [place] [address] OQ Telecom: Name: Ramirez Barry MD Position: [facility] SNOW MAKER Member Role: Lifetime SNOW MAKER Physician Address: [address] [place] [address] [place] Telecom: Name: Wesley SWANN, Torrey Jacobson Position: [facility] SNOW MAKER Member Role: Lifetime SNOW MAKER Physician Address: [address] [place] [address] Women's Health Dock Builder [place], [place] [address] Telecom: Care Team Related Persons Name: CHARLETTE MELAAR Name: BS MONZON Insurance Providers Guarantor name: BALDEV AMBER Health Plan Information #: 1 Payer: MEDICARE PART B OUTPT Member Number: [id number] Policy Number: NA Group Number: NA Health Plan Information #: 2 Payer: [employer] Member Number: [id number] Policy Number: NA Group Number: [id number]
--- OUTSIDE RECORDS SUMMARY | 2024-12-15 12:37 | XMS_ITS | Continuity of Care Document ---
Author Organization [facility] Address [address] [facility], 3r [address] Floor, [address] [place] [address]- Care Team Providers Care Shot Bagger Name Role Phone Mason Stearns DO Primary Care Physician Encounter [facility] Date(s): 10/15/24 - 11/14/24 [facility] [address] [facility] 3rd Floor, [address] [place] [id number] Encounter Type: Triage Allergies, Adverse Reactions, Alerts Substance Criticality Severity Reaction Reaction Severity Status codeine rash Active sulfa drugs rash Active oxyCODONE itching Active Immunizations Given and Recorded Vaccine Date Status Refusal Reason tetanus/diphtheria/pertussis, acel(Tdap) 03/24/24 Recorded SARS-CoV-2 mRNA ([id number]-aiea-yfghm) vax 07/29/23 Recorded influenza virus vaccine, inactivated 07/29/23 Jaziel rded influenza virus vaccine, inactivated 08/29/22 Jaziel rded influenza virus vaccine, inactivated 07/29/21 Jaziel rded influenza virus vaccine, inactivated 08/02/20 Jaziel rded influenza virus vaccine, inactivated 07/30/16 Jaziel rded influenza virus vaccine, inactivated 08/08/15 Jaziel rded influenza virus vaccine, inactivated 08/12/14 Jaziel rded influenza virus vaccine, inactivated 08/06/13 Jaziel rded [id number] bivalent booster vax 03/06/23 Recorded [id number] bivalent booster vax 08/29/22 Recorded SARS-CoV-2 (COVID-19) mRNA-1273 vaccine 02/02/21 R ecorded SARS-CoV-2 (COVID-19) mRNA-1273 vaccine 01/05/21 R ecorded zoster vaccine, inactivated 07/31/19 Recorded zoster vaccine, inactivated 04/23/19 Recorded Medications amiodarone 200 mg oral tablet 200 mg, 1, tablet, By Mouth, Daily, # 30 tablet, Refills 6, Tot. Refills 6, Maintenance, 07/27/24 9:30:00 AM EDT, Route to Pharmacy Electronically, [facility]/pharmacy #[id number], Partial fill upon patient request if [...] Refills, Maintenance, 10/06/24 12:06:00 PM EST, Cream, [facility]/pharmacy #[id number], Partial fill upon patient request if [...] 4 Refills, Maintenance, 10/06/24 12:00:00 PM EST, [facility]/pharmacy #[id number], Partial fill upon patient request if [...] 07/27/24 9:28:00 AMEDT, Route to Pharmacy Electronically, [facility]/pharmacy #[id number], 165.1, cm, 07/15/24 11:16:00 EDT, Height, [...] Stop, 04/09/24 12:26:00 AM EDT, DIS Tablet, [facility]/pharmacy #[id number], Partial fill upon patient request if the prescription is for a schedule II opioid drug., 165.1, cm, 04/02/24 16:17:00 EDT, Height, 62.4, kg, 03/15/24 13:33:00 EDT, Dry Weight Start Date: 04/09/24 Status: Ordered Quantity: 8.0 Unit: tablet Repeat number: 1 omeprazole 40 mg oral enteric coated capsule 1 capsule, By Mouth, Daily, # 90 capsule, 1 Refills, Maintenance, 05/02/24 1:27:00 PM EDT, [facility], 165.1, cm, 04/02/24 16:17:00 EDT, [...] 11 Refills, Maintenance, 05/11/24 6:33:00 AM EDT, [facility], 165.1, cm, 04/02/24 [...] Maintenance, 12/15/24 6:21:00 AM EST, ER Capsule, [facility], Partial fill upon patient request [...] EST, 09/16/24 6:21:00 AM EST, ER Capsule, [facility]/pharmacy #[id number], Partial fill upon patient request if [...] 10:55:00 AM EDT, Route to Pharmacy Electronically, [facility]/pharmacy #[id number], Partial fill upon patient request if the [...] Team Personnel Name: Mason Stearns DO Position: [facility] Physician - Primary Care Member Role: PCP Address: [address] [place] [address] [place] [address]- Telecom: Name: Ramirez Barry MD Position: [facility] CARPENTER AND JOINER MD Member Role: Lifetime CARPENTER AND JOINER Physician Address: [address] [place] [address] [place] Telecom: Name: Wesley SWANN, Torrey Jacobson Position: [facility] CARPENTER AND JOINER Member Role: Lifetime CARPENTER AND JOINER Physician Address: [address] [place] [address] Women's Health Pig Machine Supervisor - [place], [place] [address] Telecom: Care Team Related Persons Name: CHARLETTE MELARA Name: SB MONZON Insurance Providers Guarantor name: BALDEV CLARK Health Plan Information #: 1 Payer: MEDICARE PART B OUTPT Member Number: NA Policy Number: NA Group Number: NA Health Plan Information #: 2 Payer: HMO BLUE IN NETWORK Member Number: NA Policy Number: NA Group Number: NA
--- OUTSIDE RECORDS SUMMARY | 2024-12-15 12:37 | XMS_ITS | Continuity of Care Document ---
Author Organization [facility] Address [address] [facility], 3r [address] Floor, [address] [place] [address]- Care Team Providers Care International Guest Coordinator Name Role Phone Mason Stearns DO Primary Care Physician Encounter [facility] Date(s): 10/15/24 - 11/14/24 [facility] [address] [facility] [address] Floor, [address] [place] [id number] Encounter Type: Triage Allergies, Adverse Reactions, Alerts Substance Criticality Severity Reaction Reaction Severity Status codeine rash Active oxyCODONE itching Active sulfa drugs rash Active Immunizations Given and Recorded Vaccine Date Status Refusal Reason tetanus/diphtheria/pertussis, acel(Tdap) 03/24/24 Recorded SARS-CoV-2 mRNA (ofmjcvf-qnqr-eolmq) vax 07/29/23 Recorded influenza virus vaccine, inactivated 07/29/23 Jaziel rded influenza virus vaccine, inactivated 08/29/22 Jaziel rded influenza virus vaccine, inactivated 07/29/21 Jaziel rded influenza virus vaccine, inactivated 08/02/20 Jazeil rded influenza virus vaccine, inactivated 07/30/16 Jaziel rded influenza virus vaccine, inactivated 08/08/15 Jaziel rded influenza virus vaccine, inactivated 08/12/14 Jaziel rded influenza virus vaccine, inactivated 08/06/13 Jaziel rded [id number] bivalent booster vax 03/06/23 Recorded [id number]-[id number] bivalent booster vax 08/29/22 Recorded SARS-CoV-2 (COVID-19) mRNA-1273 vaccine 02/02/21 R ecorded SARS-CoV-2 (COVID-19) mRNA-1273 vaccine 01/05/21 R ecorded zoster vaccine, inactivated 07/31/19 Recorded zoster vaccine, inactivated 04/23/19 Recorded Medications amiodarone 200 mg oral tablet 200 mg, 1, tablet, By Mouth, Daily, # 30 tablet, Refills 6, Tot. Refills 6, Maintenance, 07/27/24 9:30:00 AM EDT, Route to Pharmacy Electronically, [facility]/pharmacy #[id number], Partial fill upon patient request if [...] Refills, Maintenance, 10/06/24 12:06:00 PM EST, Cream, [facility]/pharmacy #[id number], Partial fill upon patient request if [...] 4 Refills, Maintenance, 10/06/24 12:00:00 PM EST, [facility]/pharmacy #[id number], Partial fill upon patient request if [...] 07/27/24 9:28:00 AMEDT, Route to Pharmacy Electronically, [facility]/pharmacy #[id number], 165.1, cm, 07/15/24 11:16:00 EDT, Height, [...] Stop, 04/09/24 12:26:00 AM EDT, DIS Tablet, [facility]/pharmacy #[id number], Partial fill upon patient request if the prescription is for a schedule II opioid drug., 165.1, cm, 04/02/24 16:17:00 EDT, Height, 62.4, kg, 03/15/24 13:33:00 EDT, Dry Weight Start Date: 04/09/24 Status: Ordered Quantity: 8.0 Unit: tablet Repeat number: 1 omeprazole 40 mg oral enteric coated capsule 1 capsule, By Mouth, Daily, # 90 capsule, 1 Refills, Maintenance, 05/02/24 1:27:00 PM EDT, [facility], 165.1, cm, 04/02/24 16:17:00 EDT, Height, [...] 11 Refills, Maintenance, 05/11/24 6:33:00 AM EDT, [facility], 165.1, cm, 04/02/24 [...] Maintenance, 12/15/24 6:21:00 AM EST, ER Capsule, [facility], Partial fill upon patient request if [...] EST, 09/16/24 6:21:00 AM EST, ER Capsule, [facility]/pharmacy #[id number], Partial fill upon patient request if [...] 10:55:00 AM EDT, Route to Pharmacy Electronically, [facility]/pharmacy #[id number], Partial fill upon patient request if the [...] Team Personnel Name: Mason Stearns DO Position: [facility] Physician - Primary Care Member Role: PCP Address: [address] [place] [address] [place] [address]- Telecom: Name: Ramirez Barry MD Position: [facility] CAFE WORKER MD Member Role: Lifetime CAFE WORKER Physician Address: [address] [place] [address] [place] [address]- [place] Telecom: Name: Wesley SWANN, Torrey Jacobson Position: [facility] CAFE WORKER Member Role: Lifetime CAFE WORKER Physician Address: [address] [place] [address] Women's Health Combination Building Inspector - [place], [place] [address] Telecom: Care Team Related Persons Name: CHARLETTE MELARA Name: SB MONZON Insurance Providers Guarantor name: BALDEV CLARK Health Plan Information #: 1 Payer: MEDICARE PART B OUTPT Member Number: NA Policy Number: NA Group Number: NA Health Plan Information #: 2 Payer: HMO BLUE IN NETWORK Member Number: NA Policy Number: NA Group Number: NA
--- OUTSIDE RECORDS SUMMARY | 2024-12-15 12:37 | XMS_ITS | Clinical Summary ---
Author Organization [facility] Address [address] [place] [address] Care Team Providers Care Crocheter Hand Name Role Phone Mason Stearns MD Primary Care Provider [phone] Allergies Active Allergy Reactions Criticality Noted Date Comments Codeine 08/28/2020 Hydrocodone 08/28/2020 Sulfa Antibiotics 08/28/2020 Medications Medication Sig Dispensed Refills Start Date End Date Status alendronate (FOSAMAX) tablet 70 mg 1 TAB BY MOUTH EVERY WEEK WITH 8 OUNCES WATER,30 MINUTES BEFORE 1ST FOOD, BEVERAGE,OR MED OF THE DAY 0 06/09/2020 Active cycloSPORINE (RESTASIS) 0.05 % ophthalmic emulsion Apply 1 drop to eye. 0 Active estradiol (VIVELLE-DOT) 0.1 MG/24HR Place 1 patch onto the skin. 0 Active gabapentin (NEURONTIN) 300 MG capsule TAKE 2 CASPULES BY MOUTH AT 8 AM, 1 CAPSULE AT NOON AND 1 CAPSULE AT BEDTIME 0 06/17/2020 Active methocarbamol (ROBAXIN) 500 MG tablet TAKE 2 TABLETS BY MOUTH 4 TIMES DAILY NEEDED FOR PAIN 0 05/27/2020 Active omeprazole (PriLOSEC) 40 MG capsule omeprazole 40 mg capsule,delayed release 0 Active oxybutynin (DITROPAN XL) 15 MG 24 hr tablet oxybutynin chloride ER 15 mg tablet,extended release 24 hr 0 Active PARoxetine (PAXIL) 10 MG tablet Take 10 mg by mouth daily. 0 07/14/2020 Active solifenacin (VESICARE) 10 MG tablet solifenacin 10 mg tablet 0 Active Active Problems Problem Noted Date Diagnosed Date Anemia 08/28/2020 Iron deficiency anemia 08/28/2020 Social History Tobacco Use Types Packs/Day Years Used Date Smoking Tobacco: Never Assessed Sex and Gender Information Value Date Recorded Sex Assigned at Not on file Gender Identity Not on file Sexual Orientation Not on file Job Start Date Occupation Industry Not on file Not on file Not on file Last Filed Vital Signs Vital Sign Reading Time Taken Comments Blood Pressure 132/62 08/28/2020 1:52 PM EDT Pulse 78 08/28/2020 1:52 PM EDT Temperature 36.7 ??C (98.1 ??F) 08/28/2020 1:52 PM ED T Respiratory Rate - - Oxygen Saturation - - Inhaled Oxygen Concentration - - Weight 70.8 kg (156 lb) 08/28/2020 1:52 PM EDT Height 167.6 cm (5' 6 ) 08/28/2020 1:52 PM EDT Body Mass Index 25.18 08/28/2020 1:52 PM EDT Plan of Treatment Health Maintenance Due Date Last Done Comments Hepatitis C Screening 1950 COVID-19 Vaccine (#1) 01/08/1951 Depression Screening 1963 Preventative Health Evaluation 1969 DTap / Tdap / Td (1 - Tdap) 1970 Colon Cancer Screening (Colonoscopy) 1996 Breast Cancer Screening (Mammogram) 2001 Shingrix-Zoster Vaccine (1 of 2) 2001 Fall Risk Assessment 2016 Osteoporosis Screening (DEXA Scan) 2016 Pneumococcal Vaccine (1 of 1 - PCV) 2016 Influenza Vaccine (#1) 2024 RSV Adult > 60+ Yrs or Pregn ant (1 - 1-dose 75+ series) 2026 Hepatitis B Vaccines Aged Out No long er eligible based on patient's age to complete this topic RSV Ped < 20 months Aged Out No longe r eligible based on patient's age to complete this topic Care Teams Crocheter Hand Relationship Specialty Start Date End Date Mason Stearns MD [address] [place] [address] PCP - General Family Medicine 08/28/20
== END 2024-12-15 11:21 | disposition home or self-care (01) ==
PROVIDERS: PCP Family Medicine; Visit Provider Internal Medicine
DX: G57.31 Lesion of lateral popliteal nerve, right lower limb (principal)
CPT/HCPCS: 99213

== ENCOUNTER → 2024-12-15 10:50 | Outpatient (BNVA) | payer MEDICARE, BC, SELFPAY | PROVIDERS: PCP Family Medicine; Visit Provider Internal Medicine | DX: G57.31 Lesion of lateral popliteal nerve, right lower limb (principal) | CPT/HCPCS: 99212 ==